=== PATIENT | male | born 1965 | race Caucasian/White ===

== ENCOUNTER 2017-03-07 03:01 | Inpatient (IN) | payer MEDICARE ==
[~2017-03-07] VITALS: Ht 180.3 cm; Wt 121.4 kg
[~2017-03-07 03:01] MED LIST: AMBI10TA; AMIL25TA PO; CARV12.5 PO; ELIQ2.5T PO; LISI20TA5; LOVA40TA PO; OMEP20CA3 PO; PACE200T PO; SIMV20TA2 PO; VICO5TAB PO
[2017-03-07] MEDS ORDERED: metroNIDAZOLE 500 MG in APPROPRIATE DILUENT 1 EA IV ONE (03:30)
[2017-03-07] MEDS ORDERED: HYDROmorphone HCL 1 MG/ML SYRINGE (J1170) IV ONE ×2 (03:30→05:45)
[2017-03-07] MEDS ORDERED: CIPROFLOXACIN 400 MG in APPROPRIATE DILUENT 1 EA IV ONE (03:30)
[2017-03-07] MEDS ORDERED: NS 1,000 ML IV ONE (03:30)
[2017-03-07] MEDS ORDERED: METOCLOPRAMIDE INJ 10MG/2ML VIAL (J2765) IV ONE (03:30)
[2017-03-07 04:21] LABS: BASO % 0.3 % (0.0-1.0); EOS # 0.3 K/mm3 (0.0-0.50); EOS % 1.5 % (0.0-3.0); LARGE UNSTAINED CELL # 0.2 K/mm3 (0.0-0.4); LYMPH # 1.5 K/mm3 (1.5-4.5); LYMPH % 7.1 % (24.0-44.0); MEAN CORPUSCULAR HEMOGLOBIN 33.1 pg (27.0-33.0); MEAN CORPUSCULAR HGB CONC 35.4 g/dl (32.0-36.5); MEAN CORPUSCULAR VOLUME 93.5 fl (80.0-96.0); MONO # 1.2 K/mm3 (0.0-0.8); MONO % 6.3 % (0.0-5.0); NEUTROPHILS # 16.2 K/mm3 (1.8-7.7); NEUTROPHILS % 83.9 % (36.0-66.0); PLATELET COUNT, AUTOMATED 223 k/mm3 (150-450); RED CELL DISTRIBUTION WIDTH 12.5 % (11.5-14.5); WHITE BLOOD COUNT 19.2 K/mm3 (4.0-10.0)
[2017-03-07 04:47] LABS: ALBUMIN 3.4 GM/DL (3.2-5.2); ALBUMIN/GLOBULIN RATIO 0.81 (1.00-1.93); ALKALINE PHOSPHATASE 69 U/L (45-117); ALT/SGPT 24 U/L (12-78); AMYLASE 25 U/L (25-115); ANION GAP 9 MEQ/L (8-16); AST/SGOT 12 U/L (15-37); BILIRUBIN,DIRECT 0.1 MG/DL (0.0-0.2); BILIRUBIN,TOTAL 0.7 MG/DL (0.2-1.0); BLOOD UREA NITROGEN 16 MG/DL (7-18); CARBON DIOXIDE LEVEL 28 MEQ/L (21-32); CHLORIDE LEVEL 106 MEQ/L (98-107); CREATININE FOR GFR 0.96 MG/DL (0.70-1.30); GLOMERULAR FILTRATION RATE > 60.0 (>56); GLUCOSE, FASTING 108 MG/DL (70-105); POTASSIUM SERUM 3.9 MEQ/L (3.5-5.1); SODIUM LEVEL 143 MEQ/L (136-145); TOTAL PROTEIN 7.6 GM/DL (6.4-8.2)
[2017-03-07] MEDS ORDERED: ISOVUE-370 76% 100ML VIAL (Q9967) As Ordered ONE (04:49)
[2017-03-07 04:50] LABS: INR 0.97
--- NOTE | 2017-03-07 05:20 | REPUSA ---
CLINICAL HISTORY: Abdominal pain. TECHNIQUE: Multiple axial, sagittal and coronal CT images were obtained through the abdomen and pelvi s after administration of intravenous contrast material. COMMENTS: Perforated sigmoid diverticulitis. Moderate amount of perisigmoid and retroperitoneal free air. No drainable abscess formation. Hepatomegaly and fatty liver infiltration. Prostatomegaly. Prostatic calcifications. Mild diffuse thickening of the bladder. The liver is of uniform attenuation without mass or defect. There is no intra or extrahepatic biliary ductal dilatation. The spleen is normal. The gallbladder is within normal limits. The pancreas is of normal contour and attenuation characteristics. There is no evidence of adrenal mass. Both kidneys demonstrate prompt and equal nephrograms. The kidneys are normal in size, shape and conf iguration. There is no evidence of renal or ureteral mass. No renal or ureteral calculi are identifie d. There is no hydroureter or hydronephrosis. No evidence for appendicitis. No evidence for small or large bowel obstruction. There is no evidence of abdominal ascites or lymphadenopathy. There is no evidence of intrinsic or extrinsic bladder mass. There is no pelvic ascites or lymphadeno naheed. Images of the lung bases show no evidence of pleural or parenchymal mass. There are no pleural effusi ons. The bony structures are free of lytic or blastic lesions. Grade 1 anterolisthesis of L5 on S1 secondary to bilateral pars defects. IMPRESSION: Perforated sigmoid diverticulitis. Moderate amount of perisigmoid and retroperitoneal free air. No drainable abscess formation. Hepatomegaly and fatty liver infiltration. Prostatomegaly. Prostatic calcifications. Mild diffuse thickening of the bladder. Thank you for your kind referral of this patient.
[2017-03-07] MEDS ORDERED: VITA400C97 PO (06:08)
[2017-03-07] MEDS ORDERED: ASPI325T PO (06:08)
[2017-03-07] MEDS ORDERED: POTA99TA PO (06:08)
[2017-03-07] MEDS ORDERED: BIOT1TAB PO (06:08)
[2017-03-07] MEDS ORDERED: VITACHTA PO (06:08)
[2017-03-07] MEDS ORDERED: ALEV220T26 PO (06:08)
[2017-03-07] MEDS ORDERED: CO Q100C PO (06:08)
[2017-03-07] MEDS ORDERED: PROMETHAZINE INJ 25 MG/ML VIAL (J2550) IV PRN (07:15)
[2017-03-07] MEDS: MORPHINE 4 MG/ML 1ML SYRINGE IV PRN ×2 (07:44→15:43)
[2017-03-07] MEDS: LR 1,000 ML IV SCH ×3 (08:06→23:05)
[2017-03-07 08:25] VITALS: BP 130/76
[2017-03-07] MEDS: PANTOPRAZOLE 40MG INJ (PROTONIX) (C9113) IV SCH (09:10)
[2017-03-07] MEDS: KETOROLAC 30 MG/ML VIAL (J1885) IV PRN ×2 (09:11→16:32)
[2017-03-07 10:00] VITALS: BP 132/82
[2017-03-07] MEDS: MORPHINE 2 MG/ML 1ML SYRINGE IV PRN ×2 (12:01→21:36)
[2017-03-07] MEDS: metroNIDAZOLE 500 MG in APPROPRIATE DILUENT 1 EA IV SCH ×2 (12:57→21:36)
--- NOTE | 2017-03-07 13:53 | HPE ---
DATE OF ADMISSION: 03/07/2017 BRIEF HISTORY OF PRESENT ILLNESS: The patient is a 51-year-old male who three days prior to admission developed severe abdominal pain in the lower abdomen. He felt as though there was some "pop" and since that time he has had persistent lower abdominal pain. He has not been able to have significant bowel movements. He has been nauseated and having fevers, chills and noticed that this pain had been increasing over the last 12 hours prior to admission with some pain radiating into his back. He has not had any history of diverticulitis in the past. However, on his workup here, they found that he had an elevated white count, suprapubic tenderness and guarding and underwent a CAT scan which revealed diverticulitis with a contained perforation in the mesentery of the colon. There was no free air appreciated. There was no free fluid. PAST MEDICAL HISTORY: Significant for history of atrial fibrillation, history of laminectomy, history of gastroesophageal (GE) reflux, history of lipoma removal. MEDICATIONS (include): - aspirin - multivitamin - vitamin E - biotin - CoQ10 - naproxen - potassium PHYSICAL EXAMINATION: Reveals a 51-year-old male who looks stated age. HEENT is unremarkable. Neck is supple without adenopathy. Lungs: Clear to auscultation without crackles, wheezes or rhonchi. Heart is regular with multiple irregular beats. Abdomen is soft, nondistended and throughout the upper abdomen he has no peritoneal signs; however, just in the suprapubic area he has some guarding, rebound and tenderness in the suprapubic area. Extremities: Warm and well-perfused. At this point, the patient does not appear septic and appears relatively comfortable in his bed at this time. IMPRESSION AND PLAN: The patient has evidence of diverticulitis with significant diverticulitis and a localized perforation into his mesentery. At this point, given his duration of pain, discomfort, fevers, and chills, I anticipate that he probably perforated three days ago and without treatment he has had some persistent pain and possibly some progression of his disease. At this point, it does not appear that he had rapid progression over the last 12 hours. Thus, I feel that it is reasonable to treat him for next 12 to 24 hours with IV antibiotics, make him nothing by mouth (n.p.o.) and see how he does over the ensuing few hours. If he has significant improvement, will continue to treat him nonoperatively. We have discussed both operative and nonoperative treatment and specifically possible drainage if necessary. The patient understands and would like to continue with the current plan at this point.
[2017-03-07 14:00] VITALS: BP 150/78
[2017-03-07] MEDS: ONDANSETRON 4MG/2ML VIAL (J2405) IV PRN (15:40)
[2017-03-07] MEDS: CIPROFLOXACIN 400 MG in APPROPRIATE DILUENT 1 EA IV SCH (16:22)
[2017-03-07 18:00] VITALS: BP 137/84
[2017-03-07] MEDS: METOCLOPRAMIDE INJ 10MG/2ML VIAL (J2765) IV PRN (21:35)
[2017-03-07 22:00] VITALS: BP 141/77
[2017-03-08] MEDS: CIPROFLOXACIN 400 MG in APPROPRIATE DILUENT 1 EA IV SCH ×2 (04:30→15:41)
[2017-03-08] MEDS: ONDANSETRON 4MG/2ML VIAL (J2405) IV PRN (05:40)
[2017-03-08] MEDS: MORPHINE 2 MG/ML 1ML SYRINGE IV PRN ×3 (05:40→15:46)
[2017-03-08] MEDS: metroNIDAZOLE 500 MG in APPROPRIATE DILUENT 1 EA IV SCH ×3 (05:40→20:34)
[2017-03-08 06:00] VITALS: BP 138/92
[2017-03-08 06:21] LABS: MEAN CORPUSCULAR HEMOGLOBIN 33.4 pg (27.0-33.0); MEAN CORPUSCULAR HGB CONC 35.9 g/dl (32.0-36.5); RED CELL DISTRIBUTION WIDTH 11.9 % (11.5-14.5); WHITE BLOOD COUNT 12.3 K/mm3 (4.0-10.0)
[2017-03-08] MEDS: KETOROLAC 30 MG/ML VIAL (J1885) IV PRN ×3 (06:33→20:34)
[2017-03-08 06:43] LABS: ANION GAP 6 MEQ/L (8-16); BLOOD UREA NITROGEN 16 MG/DL (7-18); CALCIUM LEVEL 8.5 MG/DL (8.5-10.1); CARBON DIOXIDE LEVEL 29 MEQ/L (21-32); CHLORIDE LEVEL 105 MEQ/L (98-107); CREATININE FOR GFR 0.84 MG/DL (0.70-1.30); GLOMERULAR FILTRATION RATE > 60.0 (>56); GLUCOSE, FASTING 112 MG/DL (70-105); POTASSIUM SERUM 3.7 MEQ/L (3.5-5.1); SODIUM LEVEL 140 MEQ/L (136-145)
[2017-03-08] MEDS: PANTOPRAZOLE 40MG INJ (PROTONIX) (C9113) IV SCH (08:42)
[2017-03-08] MEDS: LR 1,000 ML IV SCH ×3 (08:50→20:34)
[2017-03-08] MEDS: METOCLOPRAMIDE INJ 10MG/2ML VIAL (J2765) IV PRN (08:50)
[2017-03-08 10:00] VITALS: BP 142/89
--- NOTE | 2017-03-08 10:17 | IPNPDOC ---
Subjective Date Seen The patient was seen on 03/08/17. Subjective Chief Complaint/HPI The patient is a 51-year-old male admitted with a reason for visit of Perforation Of Sigmoid Colon Due To Diverticulitis. Events since last encounter Medical consult for Dr. Mosher. Patient with persistent hx of atrial fibrillation found in 2016 by his PCP. Patient underwent cardiac ablation, and cardioversion lasted for 2 weeks. Had poor tolerability to Amiodarone which was DC'd and patient advised to consider rate limiting medications with his floral arranger, Dr. Gloria. Patient never returned. Patient's only symptoms is fatigue. Denies CP, palpitations, dizziness or dyspnea. ENT: Denies: Head Aches, Ear Pain, Dysphagia, Sinus Congestion, Post Nasal Drip , Sore Throat, Epistaxis, Other Symptoms Pulmonary: Denies: Dyspnea, Cough Cardiovascular: Denies: Chest Pain, Palpitations, Orthopnea, Paroxysmal Noc. Dyspnea, Lt Headedness Objective Physical Examination General Exam: Positive: Alert, No Acute Distress Eye Exam: Positive: PERRLA, Conjunctiva & lids normal, EOMI, Negative: Sclera icteric Chest Exam: Positive: Clear to auscultation, Normal air movement Heart Exam: Positive: Rate Normal, Irregular Rhythm, Negative: Murmurs, Rubs Extremity Exam: Positive: Normal pulses, Negative: Clubbing, Cyanosis, Edema Psych Exam: Positive: Mental status NL, Mood NL, Oriented x 3 Assessment /Plan Problems (1) Atrial fibrillation Problem Text: VR 100s since admission. 64 this am. Will eval EKG and consider adding on beta rhea for rate control. CHADS 2 score of 1. Consider appropriate anticoagulation. EF 60% on outpatient echo per cardiology notes. (2) Perforation of sigmoid colon due to diverticulitis Status: Acute Problem Text: recommendations per Dr. Mosher, surgery Plan/VTE VTE Prophylaxis Ordered?: No VS, I&O, 24H, Fishbone Vital Signs/I&O Vital Signs Date Time Temp Pulse Resp B/P (MAP) Pulse Ox O2 Delivery O2 Flow Rate FiO2 03/08/17 09:01 18 03/08/17 06:00 98.5 64 138/92 (107) 96 03/08/17 05:50 Room Air I&O- Last 24 Hours up to 6 AM 03/08/17 06:00 Intake Total 1337 ml Output Total 1174 ml Balance 163 ml Laboratory Data 24H LABS Laboratory Tests 2 03/08/17 06:00: Anion Gap 6L, Glomerular Filtration Rate > 60.0, Blood Urea Nitrogen 16, Creatinine 0.84, Sodium Level 140, Potassium Level 3.7, Chloride Level 105, Carbon Dioxide Level 29, Calcium Level 8.5 CBC/BMP Laboratory Tests 03/08/17 06:00 Red Blood Count 3.97 L, Mean Corpuscular Volume 93.0, Mean Corpuscular Hemoglobin 33.4 H, Mean Corpuscular Hemoglobin Concent 35.9, Red Cell Distribution Width 11.9, Calcium Level 8.5 Microbiology Microbiology 03/07/17 Urine Culture - Final, Complete Attending Note Attending Note Patient reports significant reduction in pain since yesterday. He is passing some gas. Bowel sounds are hypoactive. Jessica King Mar 08, 2017 10:17 Stanislav Booth MD Mar 08, 2017 15:06
[2017-03-08 14:00] VITALS: BP 164/98
[2017-03-08 18:00] VITALS: BP 158/98
[2017-03-08 22:00] VITALS: BP 156/96
[2017-03-09 02:00] VITALS: BP 170/98
[2017-03-09] MEDS: KETOROLAC 30 MG/ML VIAL (J1885) IV PRN (02:47)
[2017-03-09] MEDS: METOCLOPRAMIDE INJ 10MG/2ML VIAL (J2765) IV PRN (02:54)
[2017-03-09] MEDS: CIPROFLOXACIN 400 MG in APPROPRIATE DILUENT 1 EA IV SCH ×2 (03:19→15:46)
[2017-03-09] MEDS: metroNIDAZOLE 500 MG in APPROPRIATE DILUENT 1 EA IV SCH ×3 (05:07→20:28)
[2017-03-09 06:00] VITALS: BP 164/100
[2017-03-09 06:42] LABS: MEAN CORPUSCULAR HEMOGLOBIN 33.2 pg (27.0-33.0); MEAN CORPUSCULAR HGB CONC 35.7 g/dl (32.0-36.5); MEAN CORPUSCULAR VOLUME 92.9 fl (80.0-96.0); RED CELL DISTRIBUTION WIDTH 11.6 % (11.5-14.5)
[2017-03-09 06:48] LABS: ANION GAP 8 MEQ/L (8-16); BLOOD UREA NITROGEN 16 MG/DL (7-18); CALCIUM LEVEL 8.3 MG/DL (8.5-10.1); CARBON DIOXIDE LEVEL 27 MEQ/L (21-32); CHLORIDE LEVEL 106 MEQ/L (98-107); CREATININE FOR GFR 0.76 MG/DL (0.70-1.30); GLOMERULAR FILTRATION RATE > 60.0 (>56); GLUCOSE, FASTING 93 MG/DL (70-105); POTASSIUM SERUM 3.7 MEQ/L (3.5-5.1); SODIUM LEVEL 141 MEQ/L (136-145)
[2017-03-09] MEDS: LR 1,000 ML IV SCH (08:32)
[2017-03-09] MEDS: PANTOPRAZOLE 40MG INJ (PROTONIX) (C9113) IV SCH (08:32)
[2017-03-09 10:00] VITALS: BP 160/80
[2017-03-09] MEDS: LISINOPRIL 10 MG TAB PO SCH (11:10)
--- NOTE | 2017-03-09 12:00 | ECGEPIP ---
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
[2017-03-09 14:00] VITALS: BP 135/80
[2017-03-09] MEDS: ACETAMINOPHEN TAB 650MG DOSE (2X325MG) PO PRN (14:39)
[2017-03-09] MEDS: METOPROLOL TART 25 MG TABLET PO SCH ×2 (14:40→20:29)
[2017-03-09 18:00] VITALS: BP 150/80
[2017-03-09 22:00] VITALS: BP 133/87
[2017-03-10 02:00] VITALS: BP 125/88
[2017-03-10] MEDS: ACETAMINOPHEN TAB 650MG DOSE (2X325MG) PO PRN ×2 (02:10→13:43)
[2017-03-10] MEDS: CIPROFLOXACIN 400 MG in APPROPRIATE DILUENT 1 EA IV SCH ×2 (04:36→15:46)
[2017-03-10] MEDS: metroNIDAZOLE 500 MG in APPROPRIATE DILUENT 1 EA IV SCH ×3 (05:29→20:46)
[2017-03-10 06:00] VITALS: BP 136/90
[2017-03-10 06:43] LABS: MEAN CORPUSCULAR HEMOGLOBIN 32.7 pg (27.0-33.0); MEAN CORPUSCULAR HGB CONC 35.2 g/dl (32.0-36.5); MEAN CORPUSCULAR VOLUME 93.1 fl (80.0-96.0); WHITE BLOOD COUNT 10.2 K/mm3 (4.0-10.0)
[2017-03-10 06:54] LABS: ANION GAP 8 MEQ/L (8-16); BLOOD UREA NITROGEN 8 MG/DL (7-18); CALCIUM LEVEL 8.5 MG/DL (8.5-10.1); CARBON DIOXIDE LEVEL 29 MEQ/L (21-32); CHLORIDE LEVEL 107 MEQ/L (98-107); CREATININE FOR GFR 0.88 MG/DL (0.70-1.30); GLOMERULAR FILTRATION RATE > 60.0 (>56); GLUCOSE, FASTING 121 MG/DL (70-105); POTASSIUM SERUM 3.8 MEQ/L (3.5-5.1); SODIUM LEVEL 144 MEQ/L (136-145)
[2017-03-10] MEDS: PANTOPRAZOLE 40MG INJ (PROTONIX) (C9113) IV SCH (08:31)
[2017-03-10] MEDS: LISINOPRIL 10 MG TAB PO SCH (08:32)
[2017-03-10] MEDS: METOPROLOL TART 25 MG TABLET PO SCH ×2 (08:32→20:45)
[2017-03-10] MEDS: ENOXAPARIN 40 MG/0.4 ML SYRINGE (J1650) SC SCH (08:32)
[2017-03-10 10:00] VITALS: BP 157/78
--- NOTE | 2017-03-10 10:30 | IPNPDOC ---
Subjective General Date/Time Seen The patient was seen on 03/10/17 at 10:28. Subject Chief Complaint/History The patient is a 51-year-old male admitted with a reason for visit of Perforation Of Sigmoid Colon Due To Diverticulitis. Patient reports not much abdominal discomfort. No nausea. Had normal BMs. Tolerated liquids Current Medications Current Medications Current Medications Acetaminophen (Tylenol Tab) 650 mg Q4HP PRN PO PAIN OR FEVER Last administered on 03/10/17 02:10; Start 03/09/17 at 14:30; Stop 04/08/17 at 14:29 Ciprofloxacin 400 mg/IV Miscellaneous Supplies 200 ml @ 200 mls/hr Q12H IV Last administered on 03/10/17 04:36; Start 03/07/17 at 16:00; Stop 03/14/17 at 15:59 Enoxaparin Sodium (Lovenox) 40 mg DAILY SC Last administered on 03/10/17 08:32 ; Start 03/10/17 at 09:00; Stop 03/15/17 at 08:59 Home Med (Med Rec Complete!) ASDIRECTED XX ; Start 03/07/17 at 06:15; Stop at 06:15; Status DC Ketorolac Tromethamine (ToRADol) 30 mg Q6HP PRN IV MILD/MODERATE PAIN (PS 1-7) Last administered on 03/09/17 02:47; Start 03/07/17 at 07:15; Stop 03/09/17 at 14:19; Status DC Lactated Ringer's 1,000 ml @ 125 mls/hr Q8H IV Last administered on 03/09/17 08:32; Start 03/07/17 at 07:05; Stop 03/09/17 at 14:04; Status DC Lisinopril (Prinivil) 10 mg DAILY PO Last administered on 03/10/17 08:32; Start 03/09/17 at 09:00; Stop 04/08/17 at 08:59 Metoclopramide HCl (REGLAN INJection) 10 mg Q6HP PRN IV NAUSEA OR VOMITING Last administered on 03/09/17 02:54; Start 03/07/17 at 07:15; Stop 04/06/17 at 07:14 Metoprolol Tartrate (Lopressor) 25 mg BID PO Last administered on 03/10/17 08: 32; Start 03/09/17 at 09:00; Stop 04/08/17 at 08:59 Metronidazole 500 mg/IV Miscellaneous Supplies 100 ml @ 100 mls/hr Q8H IV Last administered on 03/10/17 05:29; Start 03/07/17 at 13:00; Stop 03/14/17 at 12:59 Morphine Sulfate (Morphine Sulfate Inj) 2 mg Q2HP PRN IV SEVERE PAIN (PS 8-10) Last administered on 03/08/17 15:46; Start 03/07/17 at 07:15; Stop 03/14/17 at 07:14 Morphine Sulfate (Morphine Sulfate Inj) 4 mg Q2HP PRN IV SEVERE PAIN (PS 8-10) Last administered on 03/07/17 15:43; Start 03/07/17 at 07:15; Stop 03/14/17 at 07:14 Ondansetron HCl (ZOFRAN INJection) 4 mg Q6HP PRN IV NAUSEA OR VOMITING Last administered on 03/08/17 05:40; Start 03/07/17 at 07:15; Stop 04/06/17 at 07:14 Pantoprazole Sodium (Protonix) 40 mg DAILY IV Last administered on 03/10/17 08 :31; Start 03/07/17 at 09:00; Stop 04/06/17 at 08:59 Promethazine HCl (PHENERGAN INJection) 12.5 mg Q6HP PRN IV NAUSEA Last administered on 03/09/17 03:19; Start 03/07/17 at 07:15; Stop 04/06/17 at 07:14 Allergies Coded Allergies: Penicillins (Verified Allergy, Intermediate, TONGUE SWELLING, 05/15/13) Penicillins Cross Reactors (Verified Allergy, Intermediate, TONGUE SWELLING, 05/15/13) Sulfa Drugs (Verified Allergy, Intermediate, TONGUE SWELLING, 05/15/13) Sulfa Drugs Cross Reactors (Verified Allergy, Intermediate, TONGUE SWELLING, 05/15/13) Objective Physical Examination Examination GENERAL APPEARANCE:Patient seen, laying in bed, awake, alert, and oriented. Comfortable, in no acute distress. SKIN: Warm and moist. HEENT: Normocephalic, atraumatic. [place] palpebral conjunctiva, anicteric sclerae. Lips and mucosa appear moist. NECK: Supple, no thyromegaly. No obvious jugular venous distention. LUNGS: Clear to auscultation bilaterally. No wheezing appreciated. HEART: No chest wall abnormalities. Regular rate and rhythm with no murmurs appreciated. ABDOMEN: Abdomen is round, soft, nondistended, nontender on palpation.. EXTREMITIES: Extremities have no deformities. No edema identified. Vital Signs Vital Signs Date Time Temp Pulse Resp B/P (MAP) Pulse Ox O2 Delivery O2 Flow Rate FiO2 03/10/17 10:00 95.5 112 18 157/78 (104) 96 Room Air I&Os I&O- Last 24 Hours up to 6 AM 03/10/17 05:59 Intake Total 5190 ml Output Total 1100 ml Balance 4090 ml Laboratory Data Labs 24H Laboratory Tests 2 03/10/17 06:05: Anion Gap 8, Glomerular Filtration Rate > 60.0, Blood Urea Nitrogen 8, Creatinine 0.88, Sodium Level 144, Potassium Level 3.8, Chloride Level 107, Carbon Dioxide Level 29, Calcium Level 8.5 CBC/BMP Laboratory Tests 03/10/17 06:05 Red Blood Count 3.93 L, Mean Corpuscular Volume 93.1, Mean Corpuscular Hemoglobin 32.7, Mean Corpuscular Hemoglobin Concent 35.2, Red Cell Distribution Width 12.0, Calcium Level 8.5 Microbiology Microbiology 03/07/17 Urine Culture - Final, Complete Impression Perforated Diverticulitis Trial of soft foods today Repeat CT in am continue present antibiotic regimen for now Plan / VTE VTE Prophylaxis Ordered?: No DEVYN GA MD Mar 10, 2017 10:30
[2017-03-10] MEDS: ASPIRIN 325 MG TAB PO SCH (12:33)
[2017-03-10 14:00] VITALS: BP 160/80
[2017-03-10 16:00] VITALS: BP 150/73
[2017-03-10 22:00] VITALS: BP 164/88
[2017-03-11 02:00] VITALS: BP 158/100
[2017-03-11] MEDS: CIPROFLOXACIN 400 MG in APPROPRIATE DILUENT 1 EA IV SCH (04:45)
[2017-03-11 06:00] VITALS: BP 144/88
[2017-03-11 06:00] LABS: MEAN CORPUSCULAR HEMOGLOBIN 32.9 pg (27.0-33.0); MEAN CORPUSCULAR HGB CONC 35.4 g/dl (32.0-36.5); MEAN CORPUSCULAR VOLUME 93.1 fl (80.0-96.0); RED CELL DISTRIBUTION WIDTH 11.6 % (11.5-14.5); WHITE BLOOD COUNT 9.8 K/mm3 (4.0-10.0)
[2017-03-11] MEDS: metroNIDAZOLE 500 MG in APPROPRIATE DILUENT 1 EA IV SCH (06:06)
[2017-03-11 06:17] LABS: ANION GAP 7 MEQ/L (8-16); BLOOD UREA NITROGEN 15 MG/DL (7-18); CALCIUM LEVEL 8.4 MG/DL (8.5-10.1); CARBON DIOXIDE LEVEL 28 MEQ/L (21-32); CHLORIDE LEVEL 109 MEQ/L (98-107); GLOMERULAR FILTRATION RATE > 60.0 (>56); GLUCOSE, FASTING 135 MG/DL (70-105); POTASSIUM SERUM 3.8 MEQ/L (3.5-5.1); SODIUM LEVEL 144 MEQ/L (136-145)
[2017-03-11] MEDS ORDERED: GASTROGRAFIN SOLUTION 30ML PO ONE (06:30)
[2017-03-11] MEDS ORDERED: GASTROGRAFIN SOLUTION 30ML (Q9963) PO ONE (07:00)
[2017-03-11] MEDS ORDERED: ISOVUE-370 76% 100ML VIAL (Q9967) As Ordered ONE (07:50)
--- NOTE | 2017-03-11 08:35 | REP ---
CT abdomen and pelvis with IV and oral contrast: History: Follow up perforated diverticulitis. Comparison study March 07, 2017. CT contrast dose: 100 ml of Isovue [address] findings: The lung bases are clear. Preliminary phonograph needle tip maker radiograph shows an unremarkable bowel gas pattern. The liver and the spleen are normal in size and homogeneous in texture. No adrenal lesion is seen on either side. The gallbladder and the pancreas are unremarkable. The kidneys enhance symmetrically and are morphologically intact. Dystrophic calcifications are again noted in the prostate. Lower abdominal and pelvic images demonstrate an acute diverticulitis pattern affecting the sigmoid colon with an area of mural thickening, adjacent diverticulosis, pericolonic fat streaking and fairly extensive uncontained pericolonic gas. There is a linear gas collection with a small quantity of fluid adjacent to the inflamed loop of sigmoid colon as well. This linear gas and fluid collection is slightly larger than on the March 07, 2017 study. No definable abscess is seen. There is no evidence of free intraperitoneal air or free fluid. The amount of air in the adjacent pericolonic fat is a little less than was present on March 07, 2017. This uncontained air still tracks superiorly into the retroperitoneum adjacent to the transverse duodenum. Small bubbles of gas are again seen even more cephalic than this and extending into the fat surrounding the left adrenal gland and adjacent to the left diaphragmatic kayla. Impression: Perforated sigmoid diverticulitis persists. Quite similar findings to March 07, 2017. There is a little less pericolonic air. No definable abscess. Uncontained air tracks superiorly into the retroperitoneum as far cephalad as the left adrenal and the kayla of the left diaphragm. Signed by Beau Scahefer MD 03/11/2017 08:39 A
[2017-03-11] MEDS ORDERED: FLAG500T PO (08:47)
[2017-03-11] MEDS ORDERED: METO25TA4 PO (08:47)
[2017-03-11] MEDS ORDERED: CIPR-249 PO (08:47)
--- NOTE | 2017-03-11 08:56 | IPN ---
DATE: 03/09/2017 The patient is seen today for followup on his atrial fibrillation. He is in the hospital for diverticulitis and bowel perforation. He has a previous history of atrial fibrillation and had ablation, but has not had followup in a long time. His case was signed out to me by Dr. Booth who had rounded on him this week. He is feeling good. He is not having any chest pains or palpitations. No cough or shortness of breath. His abdomen is feeling better. He has been advanced to clear liquids. On examination, his blood pressure is 158/96, pulse is 104 and irregular, temperature 98.2, respirations 16, and oxygen saturation 95% on room air. He is alert, oriented, cooperative, not in any distress. His lungs are clear. His heart is irregular without any murmur, click or gallop. Abdomen is soft and nontender without any masses or organomegaly. Bowel sounds are active. He has IV fluids running at as well as IV antibiotic. LABS: Show a white count of 12,000 today which is down from his admission. Hemoglobin was 13.2. BUN is 16 and creatinine 0.76. Potassium 3.7. ASSESSMENT: 1. Atrial fibrillation. 2. Hypertension. 3. Perforation of sigmoid diverticulitis, being managed conservatively. PLAN: The patient should continue on his lisinopril. We may need to increase this if his blood pressure remains up. He is not on any chronotropic medications at this time and I will begin some metoprolol at a dose of 25 mg twice a day. We will stop his IV fluids as he is being permitted to take by mouth fluids at this time. He is not at all on any anticoagulant medicines, either chronically or while he is in the hospital. I think we should put him on some Lovenox at least. He does have a very low CHADS score, but nonetheless, he should have at least deep vein thrombosis (DVT) prophylaxis while he is here. MTDD
[2017-03-11] MEDS: ASPIRIN 325 MG TAB PO SCH (08:58)
[2017-03-11] MEDS: PANTOPRAZOLE 40MG INJ (PROTONIX) (C9113) IV SCH (08:58)
[2017-03-11 08:59] VITALS: BP 144/88
[2017-03-11] MEDS: LISINOPRIL 10 MG TAB PO SCH (08:59)
[2017-03-11] MEDS: ENOXAPARIN 40 MG/0.4 ML SYRINGE (J1650) SC SCH (08:59)
[2017-03-11] MEDS: METOPROLOL TART 25 MG TABLET PO SCH (08:59)
[2017-03-11 10:00] VITALS: BP 151/91
--- NOTE | 2017-04-16 20:09 | DSES ---
DATE OF ADMISSION: 03/07/2017 DATE OF DISCHARGE: 03/11/2017 PRINCIPAL DIAGNOSIS: Diverticulitis with localized perforation. ASSOCIATED DIAGNOSIS 1. History of atrial fibrillation. 2. History of laminectomy. 3. History of gastroesophageal reflux. BRIEF HISTORY OF PRESENT ILLNESS: The patient is a 51-year-old male who presents with a three-day history of severe abdominal pain in the lower abdomen and he felt a pop. He had persistent pain since that time, but over the last 12 hours prior to admission developed pain radiating to his back. He has not had any history of diverticulitis here, but on admission, has an elevated white count, suprapubic tenderness, guarding, and a CAT scan, which revealed diverticulitis with a contained perforation in the mesentery. No free air was appreciated. No free fluid. HOSPITAL COURSE SUMMARY: The patient was admitted with the above diagnosis, underwent treatment with intravenous (IV) antibiotics, nothing by mouth, and he had significant improvement of his symptoms relatively quickly. I anticipated that he was going to develop an abscess, but overall, he continued to have some improvement. He was discharged home on 03/11/2017, tolerating a regular diet and was afebrile. His white count was normal at 9.8 and he was discharged home with plans to follow up with me in one to two weeks, sooner if there is any questions, concerns, fevers or chills, but was discharged home on Cipro, Flagyl, Lopressor, aspirin, Biotin, multivitamins, Naprosyn, potassium, and vitamin E. He was also to follow up with his primary care provider (Dr. Archer) in one to two weeks.
== END 2017-03-11 11:10 | disposition home or self-care (01) | DRG 392 ==
LOC: M ED 03:01 → M ED INP 07:05 → M MSPAV 08:30
PROVIDERS: ADMIT Surgery; ATTEND Family Medicine
DX: K57.20 Diverticulitis of large intestine with perforation and abscess without bleeding (principal); I48.91 Unspecified atrial fibrillation; I10 Essential (primary) hypertension; K21.9 Gastro-esophageal reflux disease without esophagitis; Z79.82 Long term (current) use of aspirin; Z79.899 Other long term (current) drug therapy; Z79.1 Long term (current) use of non-steroidal anti-inflammatories (NSAID); Z88.0 Allergy status to penicillin; Z88.2 Allergy status to sulfonamides

== ENCOUNTER 2018-08-31 14:39 | Emergency (ER) | payer BC, MEDICARE, SELFPAY ==
[~2018-08-31] VITALS: Ht 177.8 cm; Wt 118.2 kg
[~2018-08-31 14:39] MED LIST changes: +ALEV220T26 PO; +ASPI325T PO; +BIOT1TAB PO; +CIPR-249 PO; +CO Q100C PO; +FLAG500T PO; +METO25TA4 PO; +POTA99TA PO; +VITA400C97 PO; +VITACHTA PO
[2018-08-31 17:59] VITALS: BP 170/100
--- NOTE | 2018-09-01 10:46 | REP ---
CHEST, TWO VIEWS: Two views of the chest are performed and compared to prior study of 02/09/2016. I see no acute infiltrate or pulmonary edema. There is slight cardiomegaly. The mediastinal silhouette is unchanged. The visualized osseous structures appear intact. IMPRESSION: No acute pulmonary disease. Electronically Signed by Daniel Chavez MD 09/01/2018 10:51 P
== END 2018-08-31 18:13 | disposition left against medical advice (07) ==
LOC: M ED 14:39
DX: J40 Bronchitis, not specified as acute or chronic (principal); I10 Essential (primary) hypertension; I48.91 Unspecified atrial fibrillation; K21.9 Gastro-esophageal reflux disease without esophagitis; Z88.0 Allergy status to penicillin; Z88.2 Allergy status to sulfonamides

== ENCOUNTER 2019-01-04 08:35 | Emergency (ER) | payer MEDICARE, SELFPAY ==
[~2019-01-04] VITALS: Ht 177.8 cm; Wt 122.7 kg
[~2019-01-04 08:35] MED LIST changes: +ASPI-1 PO; -ASPI325T PO
[2019-01-04] MEDS ORDERED: CLINDAMYCIN 150 MG CAP PO ONE (09:45)
[2019-01-04] MEDS ORDERED: KETOROLAC 30 MG/ML VIAL (J1885) IV ONE (10:15)
[2019-01-04 10:18] LABS: HEMOGLOBIN 16.2 g/dl (13.5-17.5); MEAN CORPUSCULAR HEMOGLOBIN 33.7 pg (27.0-33.0); MEAN CORPUSCULAR VOLUME 93.6 fl (80.0-96.0); PLATELET COUNT, AUTOMATED 232 10^3/uL (150-450); RED BLOOD COUNT 4.81 10^6/uL (4.30-6.10); WHITE BLOOD COUNT 13.5 10^3/uL (4.0-10.0)
[2019-01-04 10:28] LABS: INR 0.95; PROTHROMBIN TIME 12.8 SECONDS (12.1-14.4)
[2019-01-04 10:46] LABS: HEMOGLOBIN A1c 5.2 %
[2019-01-04 10:54] LABS: ALBUMIN 3.6 GM/DL (3.2-5.2); ALT/SGPT 37 U/L (12-78); BILIRUBIN,TOTAL 0.5 MG/DL (0.2-1.0); BLOOD UREA NITROGEN 15 MG/DL (7-18); CARBON DIOXIDE LEVEL 28 MEQ/L (21-32); CHLORIDE LEVEL 107 MEQ/L (98-107); CHOLESTEROL LEVEL 217 MG/DL (<200); GLOMERULAR FILTRATION RATE > 60.0 (>56); GLUCOSE, FASTING 102 MG/DL (70-100); HDL CHOLESTEROL 48 MG/DL (>40); LDL CHOLESTEROL 120 MG/DL (<100); NON-HDL-C 169 MG/DL; POTASSIUM SERUM 4.2 MEQ/L (3.5-5.1); SODIUM LEVEL 140 MEQ/L (136-145); TOTAL PROTEIN 7.4 GM/DL (6.4-8.2); TRIGLYCERIDES LEVEL 247 MG/DL (<150)
[2019-01-04 11:32] VITALS: BP 150/80
[2019-01-04] MEDS ORDERED: KETO10TAB PO (11:56)
[2019-01-04] MEDS ORDERED: CLIN150C14 PO (11:56)
[2019-01-04] MEDS ORDERED: AZEL0.1S NARES (11:56)
[2019-01-04] MEDS ORDERED: NORC1TAB7 PO (11:56)
--- NOTE | 2019-01-04 19:00 | ECGEPIP ---
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
== END 2019-01-04 12:12 | disposition home or self-care (01) ==
LOC: M ED 08:35
DX: J02.9 Acute pharyngitis, unspecified (principal); H66.91 Otitis media, unspecified, right ear; I10 Essential (primary) hypertension; R94.31 Abnormal electrocardiogram [ECG] [EKG]; I48.91 Unspecified atrial fibrillation; Z79.899 Other long term (current) drug therapy; Z88.0 Allergy status to penicillin; Z88.2 Allergy status to sulfonamides
CPT/HCPCS: 80047; 80053; 80061; 83036; 84443; 85027; 85610; 85730; 93005; 96374; 99284; J1885

== ENCOUNTER 2019-02-03 14:46 | Emergency (ER) | payer SELFPAY ==
[~2019-02-03] VITALS: Ht 177.8 cm; Wt 124.4 kg
[~2019-02-03 14:46] MED LIST changes: +AZEL0.1S NARES; +CLIN150C14 PO; +KETO10TAB PO; +NORC1TAB7 PO
[2019-02-03] MEDS ORDERED: METO50TA7 (14:52)
[2019-02-03] MEDS ORDERED: LISI-538 (14:52)
[2019-02-03] MEDS ORDERED: predniSONE 20 MG TAB PO ONE (16:30)
[2019-02-03] MEDS ORDERED: LEVALBUTEROL 1.25 MG/0.5 ML CONCENTRATE NEB INH ONE (16:30)
--- NOTE | 2019-02-03 16:55 | REP ---
PA and lateral chest: Comparison is 08/31/2018. There is cardiomegaly, unchanged. Lung cheney are clear. The vonda, mediastinum, skeletal structures are unremarkable. Impression: Chronic cardiomegaly. Otherwise, negative PA and lateral chest. Electronically Signed by Daniel Paez MD 02/03/2019 04:47 P
[2019-02-03] MEDS ORDERED: ZITHTAB PO (17:16)
[2019-02-03] MEDS ORDERED: MUCI600T31 PO (17:17)
[2019-02-03 17:28] VITALS: BP 159/87
[2019-02-03] MEDS ORDERED: AZITHROMYCIN 250 MG TAB PO ONE (17:30)
== END 2019-02-03 17:29 | disposition home or self-care (01) ==
LOC: M ED 14:46
DX: J01.90 Acute sinusitis, unspecified (principal); J20.9 Acute bronchitis, unspecified; I51.7 Cardiomegaly; Z20.828 Contact with and (suspected) exposure to other viral communicable diseases; Z88.0 Allergy status to penicillin; Z88.2 Allergy status to sulfonamides; Z79.899 Other long term (current) drug therapy

== ENCOUNTER 2020-01-19 19:49 | Emergency (ER) | payer BC, SELFPAY ==
[~2020-01-19] VITALS: Ht 180.3 cm; Wt 126.0 kg
[~2020-01-19 19:49] MED LIST changes: -CO Q1CAP2 PO; -MULTCAP PO
[2020-01-19] MEDS ORDERED: CO Q1CAP2 PO (20:01)
[2020-01-19] MEDS ORDERED: MULTCAP PO (20:01)
[2020-01-19] MEDS ORDERED: ISOVUE-370 76% 100ML VIAL As Ordered ONE (21:12)
[2020-01-19 21:15] LABS: C REACTIVE PROTEIN QUANTITATIV 2.52 MG/DL (0.00-0.30); CK-MB VALUE MASS 1.4 NG/ML (<3.6); CPK CREATINE PHOSPHOKINASE 158 U/L (39-308); MB/CK RELATIVE INDEX 0.89 (< OR =4); TROPONIN I < 0.02 NG/ML (< 0.10)
--- NOTE | 2020-01-19 21:42 | REPVR ---
PROCEDURE INFORMATION: Exam: CT Maxillofacial With Contrast Exam date and time: 01/19/2020 9:22 PM Age: 54 years old Clinical indication: Mass, lump, or swelling; Other: Right sided preauricular; Additional info: Right sided preauricular swelling, tenderness TECHNIQUE: Imaging protocol: Computed tomography images of the face with intravenous contrast. Radiation optimization: All CT scans at this facility use at least one of these dose optimization techniques: automated exposure control; mA and/or kV adjustment per patient size (includes targeted exams where dose is matched to clinical indication); or iterative reconstruction. Contrast material: ISOVUE 370; Contrast volume: 75 ml; Contrast route: INTRAVENOUS (IV); COMPARISON: No relevant prior studies available. FINDINGS: Orbits: Orbits are normal. Globes are unremarkable. Bones/joints: Temporal bones are unremarkable. Sinuses: No air-fluid levels. Middle ears and mastoid air cells are clear Auditory system: There is mild soft tissue thickening and edema in the right external auditory canal. External ear is unremarkable. Left external auditory canal and ear are normal. Submandibular/Parotid glands: There is a 1.5 cm stone in the left submandibular gland duct which is severely atrophied. Remaining salivary glands are unremarkable. Soft tissues: No abscess or fluid collections. IMPRESSION: 1. Right otitis externa. No abscess or fluid collections. 2. Large calculus in the left submandibular gland duct with near total atrophy of the left submandibular gland. Electronically signed by: Lux Pimentel On 01/19/2020 21:42:15 PM
[2020-01-19] MEDS ORDERED: CORTISPORIN OTIC SOLN 10 ML BTL AD STA (22:12)
[2020-01-19 22:59] VITALS: BP 158/86
--- NOTE | 2020-01-21 06:12 | ECGEPIP ---
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
== END 2020-01-19 23:01 | disposition home or self-care (01) ==
LOC: M ED 19:49
DX: H60.91 Unspecified otitis externa, right ear (principal); K11.5 Sialolithiasis; I10 Essential (primary) hypertension; E78.5 Hyperlipidemia, unspecified; I48.91 Unspecified atrial fibrillation; L40.9 Psoriasis, unspecified; Z88.0 Allergy status to penicillin; Z88.1 Allergy status to other antibiotic agents; Z88.2 Allergy status to sulfonamides
CPT/HCPCS: 36415; 70487; 82550; 82553; 84484; 85652; 86140; 93005; 99284; Q9967

== ENCOUNTER → 2020-01-19 | Outpatient (CLI) | payer SELFPAY ==
[~2020-01-19] MED LIST changes: +CO Q1CAP2 PO; +LISI-538; +METO50TA7; +MUCI600T31 PO; +MULTCAP PO; +ZITHTAB PO
[2020-01-19 11:50] LABS: BASO % 0.3 % (0.0-1.0); EOS # 0.2 10^3/uL (0.0-0.5); EOS % 1.6 % (0.0-3.0); HEMOGLOBIN 15.3 g/dl (13.5-17.5); LYMPH % 19.3 % (24.0-44.0); MEAN CORPUSCULAR HEMOGLOBIN 32.8 pg (27.0-33.0); MEAN CORPUSCULAR HGB CONC 34.8 g/dl (32.0-36.5); MEAN CORPUSCULAR VOLUME 94.4 fl (80.0-96.0); NEUTROPHILS # 7.3 10^3/uL (1.5-8.5); NEUTROPHILS % 69.5 % (36.0-66.0); PLATELET COUNT, AUTOMATED 225 10^3/uL (150-450); RED BLOOD COUNT 4.66 10^6/uL (4.30-6.10); WHITE BLOOD COUNT 10.5 10^3/uL (4.0-10.0)
[2020-01-19 12:11] LABS: BLOOD UREA NITROGEN 14 MG/DL (7-18); CREATININE FOR GFR 0.78 MG/DL (0.70-1.30); GLUCOSE, FASTING 105 MG/DL (70-100)
[2020-01-19 12:12] LABS: ALBUMIN 3.5 GM/DL (3.2-5.2); ALT/SGPT 30 U/L (12-78); CALCIUM LEVEL 8.9 MG/DL (8.5-10.1); CARBON DIOXIDE LEVEL 28 MEQ/L (21-32); CHLORIDE LEVEL 107 MEQ/L (98-107); CHOLESTEROL LEVEL 200 MG/DL (<200); CHOLESTEROL RISK RATIO 4.166 (<5); GLOMERULAR FILTRATION RATE > 60.0 (>56); HDL CHOLESTEROL 48 MG/DL (>40); LDL CHOLESTEROL 121 MG/DL (<100); NON-HDL-C 152 MG/DL; POTASSIUM SERUM 4.4 MEQ/L (3.5-5.1); SODIUM LEVEL 141 MEQ/L (136-145); TOTAL PROTEIN 6.9 GM/DL (6.4-8.2); TRIGLYCERIDES LEVEL 155 MG/DL (<150)
[2020-01-19 13:16] LABS: HEMOGLOBIN A1c 5.3 %
[2020-01-20 19:07] LABS: PSA TOTAL 1.7 ng/mL (0.0-4.0)
== END ==
LOC: M PLALAB 10:00
PROVIDERS: ATTEND Nurse Practitioner Adult Health
DX: Z51.81 Encounter for therapeutic drug level monitoring (principal); Z79.899 Other long term (current) drug therapy; E66.01 Morbid (severe) obesity due to excess calories; Z12.5 Encounter for screening for malignant neoplasm of prostate

== ENCOUNTER → 2020-07-07 | Outpatient (CLI) | payer BC ==
[~2020-07-07] MED LIST changes: +CO Q1CAP2 PO; +MULTCAP PO
[2020-07-07 13:54] LABS: BASO % 0.5 % (0.0-1.0); EOS # 0.1 10^3/uL (0.0-0.5); EOS % 1.6 % (0.0-3.0); HEMATOCRIT 46.5 % (42.0-52.0); HEMOGLOBIN 15.5 g/dl (13.5-17.5); LYMPH # 2.4 10^3/uL (1.5-5.0); LYMPH % 29.7 % (24.0-44.0); MEAN CORPUSCULAR HEMOGLOBIN 31.9 pg (27.0-33.0); MEAN CORPUSCULAR HGB CONC 33.3 g/dl (32.0-36.5); MEAN CORPUSCULAR VOLUME 95.7 fl (80.0-96.0); MONO # 0.6 10^3/uL (0.0-0.8); MONO % 7.5 % (0.0-5.0); NEUTROPHILS # 4.9 10^3/uL (1.5-8.5); NEUTROPHILS % 60.5 % (36.0-66.0); PLATELET COUNT, AUTOMATED 245 10^3/uL (150-450); RED BLOOD COUNT 4.86 10^6/uL (4.30-6.10); WHITE BLOOD COUNT 8.2 10^3/uL (4.0-10.0)
[2020-07-07 14:31] LABS: ALBUMIN 3.7 GM/DL (3.2-5.2); ALT/SGPT 37 U/L (12-78); BILIRUBIN,TOTAL 0.7 MG/DL (0.2-1.0); BLOOD UREA NITROGEN 17 MG/DL (7-18); CALCIUM LEVEL 8.8 MG/DL (8.5-10.1); CARBON DIOXIDE LEVEL 29 MEQ/L (21-32); CHLORIDE LEVEL 105 MEQ/L (98-107); CHOLESTEROL LEVEL 256 MG/DL (<200); CHOLESTEROL RISK RATIO 5.224 (<5); CREATININE FOR GFR 0.93 MG/DL (0.70-1.30); GLOMERULAR FILTRATION RATE > 60.0 (>56); GLUCOSE, FASTING 106 MG/DL (70-100); HDL CHOLESTEROL 49 MG/DL (>40); LDL CHOLESTEROL 159 MG/DL (<100); NON-HDL-C 207 MG/DL; POTASSIUM SERUM 4.5 MEQ/L (3.5-5.1); SODIUM LEVEL 140 MEQ/L (136-145); TOTAL PROTEIN 6.9 GM/DL (6.4-8.2); TRIGLYCERIDES LEVEL 239 MG/DL (<150)
[2020-07-08 23:07] LABS: PSA TOTAL 1.2 ng/mL (0.0-4.0)
== END ==
LOC: M PLALAB 09:55
PROVIDERS: ATTEND Nurse Practitioner Adult Health
DX: E66.01 Morbid (severe) obesity due to excess calories (principal); Z79.899 Other long term (current) drug therapy; Z12.5 Encounter for screening for malignant neoplasm of prostate; I48.20 Chronic atrial fibrillation, unspecified

== ENCOUNTER → 2021-12-14 | Outpatient (CLI) | payer BC ==
[~2021-12-14] MED LIST changes: -CLIN150C14 PO; +CLIN150C17 PO; -LISI-538; +LISI20TA33; +OMEG10002 PO; +VITMTA PO
== END ==
LOC: M LABSMTC 09:36
PROVIDERS: ATTEND Anesthesiology
DX: Z01.818 Encounter for other preprocedural examination (principal); Z11.52 Encounter for screening for COVID-19

== ENCOUNTER 2021-12-19 13:12 | Day surgery (SDC) | payer BC ==
[~2021-12-19] VITALS: Ht 180.3 cm; Wt 116.6 kg
[~2021-12-19 13:12] MED LIST changes: +NS 1,000 ML IV ONE
[2021-12-19] MEDS ORDERED: propofoL 200 MG/20 ML VIAL As Ordered ONE (14:24)
[2021-12-19] MEDS ORDERED: LIDOCAINE 2% 100MG/5ML SDV (FOR ANES.) As Ordered ONE (14:24)
[2021-12-19] MEDS ORDERED: METOPROLOL 5 MG/5 ML VIAL As Ordered ONE (15:50)
[2021-12-19 16:20] VITALS: BP 145/94
== END 2021-12-19 16:43 | disposition home or self-care (01) ==
LOC: M OPP 13:12
PROVIDERS: ATTEND Surgery
DX: K57.30 Diverticulosis of large intestine without perforation or abscess without bleeding (principal); K64.0 First degree hemorrhoids; K62.5 Hemorrhage of anus and rectum; Z80.0 Family history of malignant neoplasm of digestive organs; Z79.899 Other long term (current) drug therapy; Z88.0 Allergy status to penicillin; Z88.2 Allergy status to sulfonamides

== ENCOUNTER → 2022-07-02 | Outpatient (CLI) | payer BC ==
[~2022-07-02] MED LIST changes: +GNP250TA9 PO; -NS 1,000 ML IV ONE; +RA K500C PO; +VITA-16 PO
== END ==
LOC: M LABSMTC 09:41
PROVIDERS: ATTEND Anesthesiology
DX: Z01.812 Encounter for preprocedural laboratory examination (principal); Z11.52 Encounter for screening for COVID-19

== ENCOUNTER 2022-07-04 08:53 | Day surgery (SDC) | payer OTHER, BC ==
[~2022-07-04] VITALS: Ht 177.8 cm; Wt 118.8 kg
[~2022-07-04 08:53] MED LIST changes: +BSS IRRIG/VANCO(10MG)/TOBRA(5MG)/EPINEPH(1:1000-0.5CC)500ML BAG-ORONLY IR ONE; +CEFUROXIME 1MG/0.1ML INTRACAMERAL INJ As Ordered ONE; +CYCLOPENTOLATE 1% OPHTH SOLN 2ML BTL OS SCH; +LIDOCAINE 1% 1ML PF SYRINGE (OR EYE CASES) As Ordered ONE; +LIDOCAINE 3.5 % 1ML OPHTH TOPICAL GEL OU ONE; +OFLOXACIN 0.3 % (OCUFLOX) OPTH SOL 5ML OS ONE; +PHENYLEPHRINE 10% OPHTH SOL 5ML OS PRN; +PHENYLEPHRINE 2.5% OPHTH SOL 2ML OS SCH; +TROPICAMIDE 1% OPHTH SOLN 15ML OS SCH
[2022-07-04] MEDS ORDERED: POVIDONE-IODINE 5% OPHTH PREP SOL 30ML As Ordered ONE (09:31)
[2022-07-04] MEDS ORDERED: MIDAZOLAM INJ 2MG/2ML VIAL (J2250 PER 1MG) As Ordered ONE (10:37)
[2022-07-04] MEDS ORDERED: fentaNYL 100 MCG/2 ML INJECTION As Ordered ONE (10:37)
[2022-07-04 10:52] VITALS: BP 154/98
== END 2022-07-04 11:15 | disposition home or self-care (01) ==
LOC: M SDC 08:53
PROVIDERS: ATTEND Ophthalmology
DX: H26.9 Unspecified cataract (principal); I10 Essential (primary) hypertension; I48.91 Unspecified atrial fibrillation; Z88.0 Allergy status to penicillin; Z88.2 Allergy status to sulfonamides
CPT/HCPCS: 66984; 92015; J0697; J2250; J3010

== ENCOUNTER → 2022-07-10 | Outpatient (REF) | payer BC ==
[~2022-07-10] MED LIST changes: -BSS IRRIG/VANCO(10MG)/TOBRA(5MG)/EPINEPH(1:1000-0.5CC)500ML BAG-ORONLY IR ONE; -CEFUROXIME 1MG/0.1ML INTRACAMERAL INJ As Ordered ONE; -CYCLOPENTOLATE 1% OPHTH SOLN 2ML BTL OS SCH; -LIDOCAINE 1% 1ML PF SYRINGE (OR EYE CASES) As Ordered ONE; -LIDOCAINE 3.5 % 1ML OPHTH TOPICAL GEL OU ONE; -OFLOXACIN 0.3 % (OCUFLOX) OPTH SOL 5ML OS ONE; -PHENYLEPHRINE 10% OPHTH SOL 5ML OS PRN; -PHENYLEPHRINE 2.5% OPHTH SOL 2ML OS SCH; -TROPICAMIDE 1% OPHTH SOLN 15ML OS SCH
[2022-07-10 14:45] LABS: HEMATOCRIT 47.6 % (42.0-52.0); HEMOGLOBIN 15.9 g/dl (13.5-17.5); MEAN CORPUSCULAR HEMOGLOBIN 32.3 pg (27.0-33.0); MEAN CORPUSCULAR HGB CONC 33.4 g/dl (32.0-36.5); MEAN CORPUSCULAR VOLUME 96.7 fl (80.0-96.0); PLATELET COUNT, AUTOMATED 251 10^3/uL (150-450); RED BLOOD COUNT 4.92 10^6/uL (4.30-6.10)
[2022-07-10 15:13] LABS: ALBUMIN 3.9 G/DL (3.2-5.2); ALKALINE PHOSPHATASE 76 U/L (46-116); ALT/SGPT 24 U/L (7.0-40); AST/SGOT 20 U/L (<34); BILIRUBIN,TOTAL 0.5 MG/DL (0.3-1.2); BLOOD UREA NITROGEN 20 MG/DL (9-23); CALCIUM LEVEL 8.9 MG/DL (8.5-10.1); CARBON DIOXIDE LEVEL 29 MMOL/L (20-31); CHLORIDE LEVEL 105 MMOL/L (98-107); CREATININE FOR GFR 0.76 MG/DL (0.70-1.30); GLOMERULAR FILTRATION RATE > 60.0 (>56); GLUCOSE, FASTING 92 MG/DL (60-100); POTASSIUM SERUM 5.1 MMOL/L (3.5-5.1); SODIUM LEVEL 142 MMOL/L (136-145)
== END ==
LOC: M SFHCADAM 09:55
PROVIDERS: ATTEND Physician Assistant
DX: I48.91 Unspecified atrial fibrillation (principal); E78.5 Hyperlipidemia, unspecified; I10 Essential (primary) hypertension

== ENCOUNTER → 2022-09-28 | Outpatient (CLI) | payer BC | LOC: M CARPUL 08:29 | PROVIDERS: ATTEND Physician Assistant | DX: I48.91 Unspecified atrial fibrillation (principal); I10 Essential (primary) hypertension; I42.0 Dilated cardiomyopathy ==

== ENCOUNTER → 2022-11-15 | Outpatient (REF) | payer BC ==
[2022-11-15 13:41] LABS: HEMOGLOBIN 14.1 g/dl (13.5-17.5); MEAN CORPUSCULAR HEMOGLOBIN 32.7 pg (27.0-33.0); MEAN CORPUSCULAR HGB CONC 33.6 g/dl (32.0-36.5); MEAN CORPUSCULAR VOLUME 97.4 fl (80.0-96.0); PLATELET COUNT, AUTOMATED 302 10^3/uL (150-450); RED BLOOD COUNT 4.31 10^6/uL (4.30-6.10); WHITE BLOOD COUNT 6.5 10^3/uL (4.0-10.0)
[2022-11-15 13:56] LABS: CREATININE, URINE 117.1 MG/DL; MALB URINE SIEMENS < 3.0 MG/L; MAU/CREAT RATIO 2.5 MCG/MG (0.0-30.0)
[2022-11-15 13:59] LABS: ALBUMIN 3.3 G/DL (3.2-5.2); ALKALINE PHOSPHATASE 61 U/L (46-116); ALT/SGPT 22 U/L (7.0-40); AST/SGOT 13 U/L (<34); BILIRUBIN,TOTAL 0.4 MG/DL (0.3-1.2); BLOOD UREA NITROGEN 10 MG/DL (9-23); CALCIUM LEVEL 8.7 MG/DL (8.5-10.1); CARBON DIOXIDE LEVEL 31 MMOL/L (20-31); CHLORIDE LEVEL 106 MMOL/L (98-107); CHOLESTEROL LEVEL 177 MG/DL (<200); CHOLESTEROL RISK RATIO 4.07 (<5); CREATININE FOR GFR 0.82 MG/DL (0.70-1.30); GLOMERULAR FILTRATION RATE > 60.0 (>56); GLUCOSE, FASTING 106 MG/DL (60-100); HDL CHOLESTEROL 43.4 MG/DL (>40); LDL CHOLESTEROL 111.2 MG/DL (<100); NON-HDL-C 133.6 MG/DL; POTASSIUM SERUM 4.9 MMOL/L (3.5-5.1); SODIUM LEVEL 141 MMOL/L (136-145); TOTAL PROTEIN 6.3 G/DL (5.7-8.2); TRIGLYCERIDES LEVEL 112 MG/DL (<150)
== END ==
LOC: M SFHCADAM 08:44
PROVIDERS: ATTEND Physician Assistant
DX: I48.91 Unspecified atrial fibrillation (principal); I10 Essential (primary) hypertension; E78.5 Hyperlipidemia, unspecified; Z13.1 Encounter for screening for diabetes mellitus
CPT/HCPCS: 80053; 80061; 82043; 83036; 85027; G0103

== ENCOUNTER → 2023-07-11 | Outpatient (CLI) | payer BC ==
[2023-07-11 14:59] LABS: ALBUMIN 3.8 G/DL (3.2-5.2); ALKALINE PHOSPHATASE 78 U/L (46-116); ALT/SGPT 19 U/L (7.0-40); AST/SGOT 13 U/L (<34); BILIRUBIN,TOTAL 0.7 MG/DL (0.3-1.2); BLOOD UREA NITROGEN 22 MG/DL (9-23); CARBON DIOXIDE LEVEL 30 MMOL/L (20-31); CHLORIDE LEVEL 103 MMOL/L (98-107); CREATININE FOR GFR 0.89 MG/DL (0.70-1.30); GLOMERULAR FILTRATION RATE > 60.0 (>56); GLUCOSE, FASTING 103 MG/DL (60-100); POTASSIUM SERUM 4.4 MMOL/L (3.5-5.1); SODIUM LEVEL 140 MMOL/L (136-145); TOTAL PROTEIN 6.8 G/DL (5.7-8.2)
== END ==
LOC: M PLALAB 08:28
PROVIDERS: ATTEND Internal Medicine Cardiovascular Disease
DX: I10 Essential (primary) hypertension (principal)

== ENCOUNTER → 2023-10-10 | Outpatient (CLI) | payer BC ==
[2023-10-10 14:48] LABS: BLOOD UREA NITROGEN 18 MG/DL (9-23); CALCIUM LEVEL 9.4 MG/DL (8.5-10.1); CARBON DIOXIDE LEVEL 33 MMOL/L (20-31); CHLORIDE LEVEL 103 MMOL/L (98-107); CREATININE FOR GFR 0.86 MG/DL (0.70-1.30); GLOMERULAR FILTRATION RATE > 60.0 (>56); GLUCOSE, FASTING 118 MG/DL (60-100); POTASSIUM SERUM 4.3 MMOL/L (3.5-5.1); SODIUM LEVEL 138 MMOL/L (136-145)
== END ==
LOC: M PLALAB 09:47
PROVIDERS: ATTEND Internal Medicine Cardiovascular Disease
DX: I10 Essential (primary) hypertension (principal)

== ENCOUNTER 2023-11-23 17:46 | Emergency (ER) | payer BC ==
[~2023-11-23] VITALS: Ht 177.8 cm; Wt 119.1 kg
[2023-11-23 17:47] VITALS: TEMP 99.1; O2SAT 97
[2023-11-23] MEDS ORDERED: AMLO1TAB24 (18:03)
[2023-11-23] MEDS ORDERED: ECOT81TA5 PO (18:03)
[2023-11-23] MEDS ORDERED: LOSA100T5 (18:03)
[2023-11-23 18:48] VITALS: BP 154/90
[2023-11-23 18:50] LABS: RSV AMPLIFICATION NEGATIVE (NEGATIVE)
[2023-11-23] MEDS: LOSARTAN 50MG TABLET PO ONE (19:06)
[2023-11-23] MEDS: amLODIPine 5 MG TAB PO ONE (19:06)
[2023-11-23] MEDS: ACETAMINOPHEN 500 MG TAB PO ONE (19:26)
[2023-11-23] MEDS: IPRATROPIUM 0.5MG/ALBUTEROL 2.5MG INH SOL UD 3ML (DUONEB) NEB ONE (19:35)
[2023-11-23] MEDS ORDERED: IPRA0.00 INH (19:57)
[2023-11-23] MEDS ORDERED: EASY-106 XX (19:58)
== END 2023-11-23 20:10 | disposition home or self-care (01) ==
LOC: M ED 17:46
DX: J20.9 Acute bronchitis, unspecified (principal); I10 Essential (primary) hypertension; Z88.0 Allergy status to penicillin; Z88.2 Allergy status to sulfonamides; Z79.51 Long term (current) use of inhaled steroids; Z79.1 Long term (current) use of non-steroidal anti-inflammatories (NSAID); Z79.899 Other long term (current) drug therapy

== ENCOUNTER → 2024-07-29 | Outpatient (CLI) | payer BC ==
[~2024-07-29] MED LIST changes: +AMLO1TAB24; -AZEL0.1S NARES; +AZEL137S8 NARES; +EASY-106 XX; +ECOT81TA5 PO; +IPRA0.00 INH; +LOSA100T5
[2024-07-29 14:15] LABS: HEMATOCRIT 45.1 % (42.0-52.0); HEMOGLOBIN 15.1 g/dl (13.5-17.5); MEAN CORPUSCULAR HEMOGLOBIN 32.7 pg (27.0-33.0); MEAN CORPUSCULAR HGB CONC 33.5 g/dl (32.0-36.5); MEAN CORPUSCULAR VOLUME 97.6 fl (80.0-96.0); PLATELET COUNT, AUTOMATED 263 10^3/uL (150-450); RED BLOOD COUNT 4.62 10^6/uL (4.30-6.10); WHITE BLOOD COUNT 7.7 10^3/uL (4.0-10.0)
[2024-07-29 14:35] LABS: HEMOGLOBIN A1c 5.1 % (4.0-6.0)
[2024-07-29 14:48] LABS: ALBUMIN 3.9 G/DL (3.2-5.2); ALKALINE PHOSPHATASE 65 U/L (40-129); ALT/SGPT 23 U/L (7.0-40); AST/SGOT 14 U/L (<34); BILIRUBIN,TOTAL 0.7 MG/DL (0.3-1.2); BLOOD UREA NITROGEN 20 MG/DL (9-23); CALCIUM LEVEL 10.1 MG/DL (8.5-10.1); CARBON DIOXIDE LEVEL 32 MMOL/L (20-31); CHLORIDE LEVEL 104 MMOL/L (98-107); CHOLESTEROL LEVEL 226 MG/DL (<200); CHOLESTEROL RISK RATIO 4.44 (<5); CREATININE FOR GFR 0.87 MG/DL (0.70-1.30); GLOMERULAR FILTRATION RATE > 60.0 (>56); GLUCOSE, FASTING 117 MG/DL (60-100); HDL CHOLESTEROL 50.9 MG/DL (>40); LDL CHOLESTEROL 141.3 MG/DL (<100); NON-HDL-C 175.1 MG/DL; POTASSIUM SERUM 4.6 MMOL/L (3.5-5.1); SODIUM LEVEL 141 MMOL/L (136-145); TOTAL PROTEIN 7.2 G/DL (5.7-8.2); TRIGLYCERIDES LEVEL 169 MG/DL (<150)
== END ==
LOC: M PLALAB 09:23
PROVIDERS: ATTEND Internal Medicine Cardiovascular Disease
DX: I77.810 Thoracic aortic ectasia (principal); E78.2 Mixed hyperlipidemia; R73.03 Prediabetes